=== PATIENT | male | born 1980 | race Caucasian/White ===

== ENCOUNTER 2021-11-17 17:19 | Emergency (ER) | payer SELFPAY ==
[~2021-11-17] VITALS: Ht 162.6 cm; Wt 70.0 kg
[2021-11-17 17:29] VITALS: BP 111/88
[2021-11-17] MEDS ORDERED: LIDOCAINE HCL/EPINEPHRINE 1%-EPI 1:100,000 20 ML VIAL INFIL NR (17:57)
[2021-11-17] MEDS ORDERED: LIDOCAINE HCL/EPINEPHRINE 1%-EPI 1:100,000 50 ML VIAL INFIL ONE (18:00)
[2021-11-17] MEDS ORDERED: TETANUS, DIPHTHERIA, PERTUSSIS VAC/PF 0.5ML (>10YR OLD) IM ONE (18:00)
== END 2021-11-17 19:41 | disposition home or self-care (01) ==
LOC: ER 17:19
DX: S01.111A Laceration without foreign body of right eyelid and periocular area, initial encounter (principal); W01.0XXA Fall on same level from slipping, tripping and stumbling without subsequent striking against object, initial encounter; Y93.89 Activity, other specified; Y92.488 Other paved roadways as the place of occurrence of the external cause
CPT/HCPCS: 12011; 90471; 90715; 99283